=== PATIENT | male | born 1950 | race Caucasian/White ===

== ENCOUNTER 2016-11-10 15:47 | Inpatient (IN) | payer BC, OTHER ==
[~2016-11-10] VITALS: Ht 182.9 cm; Wt 128.0 kg
[2016-11-10 19:39] LABS: Basophils # (auto) 0.1 uL; Basophils % (auto) 1.1 % (0.0-2.0); Eosinophils # (auto) 0.2 uL; Eosinophils % (auto) 1.3 % (0.0-7.0); Hematocrit 37.2 % (41.0-53.0); Hemoglobin 12.8 g/dL (13.5-17.5); Lymphocytes # (auto) 2.5 uL; Lymphocytes % (auto) 18.8 % (10.0-50.0); Mean Corpuscular Hemoglobin 30.7 pg (28.0-32.0); Mean Corpuscular Hgb Conc. 34.3 g/dL (32.0-36.0); Mean Corpuscular Volume 89.5 fL (80.0-100.0); Mean Platelet Volume 8.2 fL (7.4-10.4); Monocytes # (auto) 0.8 uL; Monocytes % (auto) 6.2 % (0.0-12.0); Neutrophils # (auto) 9.6 uL; Neutrophils % (auto) 72.6 % (37.0-80.0); Platelet Count (auto) 384 10^3/uL (140-450); White Blood Cell 13.2 10^3/uL (4.4-10.8)
[2016-11-10] MEDS ORDERED: ONDANSETRON HCL 4 MG/2 ML VIAL IV ONE ×2 (20:00→23:00)
[2016-11-10] MEDS ORDERED: HYDROmorphone HCL 2 MG/ML VL IV ONE ×2 (20:00→23:00)
[2016-11-10 20:05] LABS: Albumin 3.6 g/dL (3.4-5.0); BUN/Creatinine Ratio 14.7; Bilirubin, Total 0.4 mg/dL (0.2-1.0); Potassium 3.8 mmol/L (3.5-5.1); Total Protein 7.8 g/dL (6.4-8.2)
[2016-11-10] MEDS ORDERED: cefTRIAXone 1GM/50ML D5W 50 ML IV ONE (21:30)
[2016-11-10] MEDS ORDERED: DEXTROSE (50%) 50ML SYRG IV PRN (21:30)
[2016-11-10] MEDS ORDERED: SODIUM CHLORIDE 0.9% 1,000 ML IV ONE (21:30)
[2016-11-10 21:31] LABS: Urine Bilirubin Negative (Negative); Urine Blood Negative /uL (Negative); Urine Color Yellow (Yellow); Urine Glucose Normal (Normal); Urine Nitrite Negative (Negative); Urine RBC <1 /hpf (0 - 3); Urine Urobilinogen Normal (Negative); Urine pH 6.5 (5.0-8.0)
[2016-11-10 21:37] LABS: Urine Ketone 1+ (Negative)
[2016-11-10 22:00] LABS: INR 1.1 (0.9-1.15); Partial Thromboplastin Time 28.5 sec (22.64-33.71); Prothrombin Time 11.3 sec (9.37-12.3)
[2016-11-10] MEDS ORDERED: DOXYCYCLINE HYC 100MG/250ML 250 ML IV SCH (22:00)
[2016-11-10] MEDS: ATORVASTATIN 20 MG TAB PO SCH (22:14)
[2016-11-10] MEDS: GABAPENTIN 100 MG CAP PO SCH (22:14)
[2016-11-10] MEDS: CARVEDILOL 12.5 MG TAB PO SCH (22:14)
[2016-11-10 23:04] VITALS: BP 109/42
[2016-11-11] MEDS: ACCU-CHEK COMFORT CURVE STRIP VI SCH ×4 (00:06→18:09)
[2016-11-11] MEDS ORDERED: ONDANSETRON HCL 4 MG/2 ML VIAL IV PRN (03:00)
[2016-11-11] MEDS: HYDROmorphone HCL 2 MG/ML VL IV PRN ×2 (03:45→12:23)
[2016-11-11 05:25] VITALS: BP 102/56
[2016-11-11] MEDS: GABAPENTIN 100 MG CAP PO SCH ×3 (05:29→21:57)
[2016-11-11] MEDS: InsuLIN REG 1unit/0.01ml Soln (100units/ml) SC SCH ×4 (05:42→18:00)
[2016-11-11 06:36] LABS: Basophils # (auto) 0.1 uL; Basophils % (auto) 0.7 % (0.0-2.0); Eosinophils # (auto) 0.1 uL; Eosinophils % (auto) 1.6 % (0.0-7.0); Hematocrit 33.6 % (41.0-53.0); Hemoglobin 11.4 g/dL (13.5-17.5); Lymphocytes # (auto) 1.6 uL; Lymphocytes % (auto) 18.8 % (10.0-50.0); Mean Corpuscular Hemoglobin 30.5 pg (28.0-32.0); Mean Corpuscular Volume 89.7 fL (80.0-100.0); Mean Platelet Volume 7.9 fL (7.4-10.4); Monocytes # (auto) 0.7 uL; Monocytes % (auto) 7.7 % (0.0-12.0); Neutrophils # (auto) 6.2 uL; Neutrophils % (auto) 71.2 % (37.0-80.0); Platelet Count (auto) 314 10^3/uL (140-450); Red Cell Distribution Width 12.9 % (11.6-16.0); White Blood Cell 8.7 10^3/uL (4.4-10.8)
[2016-11-11 07:08] LABS: Albumin 3.1 g/dL (3.4-5.0); Potassium 3.6 mmol/L (3.5-5.1)
[2016-11-11 07:11] LABS: BUN/Creatinine Ratio 14.4
[2016-11-11 07:13] LABS: Bilirubin, Total 0.5 mg/dL (0.2-1.0); Total Protein 6.7 g/dL (6.4-8.2)
[2016-11-11] MEDS ORDERED: LIDOCAINE W/ EPINEPHRINE 1% 20ML VIAL ONE (07:54)
[2016-11-11] MEDS ORDERED: LIDOCAINE 1% HCL (LOCAL ANESTH.) INJ 20ML MDV ONE (07:54)
[2016-11-11] MEDS ORDERED: BUPIVACAINE 0.25% INJ 50ML VIAL ONE (07:54)
[2016-11-11 08:05] VITALS: BP 109/60
[2016-11-11] MEDS ORDERED: ceFAZolin 1GM/50ML D5W 50 ML IV ONE (08:12)
[2016-11-11] MEDS ORDERED: ceFAZolin 1GM VL ONE (08:18)
[2016-11-11] MEDS ORDERED: SUCCINYLCHOLINE CHLORIDE 20 MG/ML 10ML VIAL IV ONE (08:32)
[2016-11-11] MEDS ORDERED: MIDAZOLAM HCL 1MG/1ML-2 ML VIAL ONE (08:36)
[2016-11-11] MEDS ORDERED: fentaNYL CITRATE 100 MCG/2 ML VL ONE (08:36)
[2016-11-11] MEDS ORDERED: PROPOFOL 10 MG/ML 20 ML IV ONE (08:36)
[2016-11-11] MEDS ORDERED: ROCURONIUM 10MG/ML 10ML VIAL IV ONE (08:36)
[2016-11-11] MEDS: cefTRIAXone 1GM/50ML D5W 50 ML IV SCH (09:00)
[2016-11-11] MEDS ORDERED: hydrALAZINE HCL 20 MG/ML VL IV PRN (10:00)
[2016-11-11] MEDS ORDERED: HYDROmorphone HCL 2 MG/ML VL IV PRN (10:00)
[2016-11-11] MEDS ORDERED: ePHEDrine SULFATE 50 MG/ML AMP IV PRN (10:00)
[2016-11-11] MEDS ORDERED: FUROSEMIDE 20 MG TAB PO SCH (10:00)
[2016-11-11] MEDS ORDERED: ONDANSETRON HCL 4 MG/2 ML VIAL IV ONE (10:00)
[2016-11-11] MEDS ORDERED: PANTOPRAZOLE SODIUM 40 MG/10 ML VIAL IV SCH (10:00)
[2016-11-11] MEDS ORDERED: POTASSIUM CHLORIDE 8 MEQ TAB PO SCH (10:00)
[2016-11-11] MEDS ORDERED: LOSARTAN POTASSIUM 50 MG TAB PO SCH (10:00)
[2016-11-11 12:00] VITALS: BP 110/60
[2016-11-11] MEDS ORDERED: ACETAMINOPHEN 325 MG TAB PO PRN (12:00)
[2016-11-11] MEDS: CARVEDILOL 12.5 MG TAB PO SCH ×2 (12:21→21:57)
[2016-11-11 17:28] VITALS: BP 100/41
[2016-11-11 20:00] VITALS: BP 97/45
[2016-11-11 21:41] VITALS: BP 97/45
[2016-11-11] MEDS: ATORVASTATIN 20 MG TAB PO SCH (21:56)
[2016-11-12] MEDS: ACCU-CHEK COMFORT CURVE STRIP VI SCH ×2 (01:01→05:33)
[2016-11-12] MEDS: InsuLIN REG 1unit/0.01ml Soln (100units/ml) SC SCH ×2 (01:02→05:43)
[2016-11-12 04:42] VITALS: BP 99/54
[2016-11-12] MEDS: GABAPENTIN 100 MG CAP PO SCH (05:33)
[2016-11-12 06:56] LABS: Basophils # (auto) 0 uL; Basophils % (auto) 0.2 % (0.0-2.0); Eosinophils # (auto) 0.3 uL; Eosinophils % (auto) 3.9 % (0.0-7.0); Hematocrit 33.6 % (41.0-53.0); Hemoglobin 11.3 g/dL (13.5-17.5); Lymphocytes # (auto) 1.7 uL; Lymphocytes % (auto) 22.7 % (10.0-50.0); Mean Corpuscular Hemoglobin 30.3 pg (28.0-32.0); Mean Corpuscular Hgb Conc. 33.7 g/dL (32.0-36.0); Mean Corpuscular Volume 89.8 fL (80.0-100.0); Mean Platelet Volume 7.9 fL (7.4-10.4); Monocytes # (auto) 0.5 uL; Monocytes % (auto) 6.6 % (0.0-12.0); Neutrophils # (auto) 4.9 uL; Neutrophils % (auto) 66.6 % (37.0-80.0); Platelet Count (auto) 329 10^3/uL (140-450); Red Cell Distribution Width 12.9 % (11.6-16.0); White Blood Cell 7.4 10^3/uL (4.4-10.8)
[2016-11-12 07:08] LABS: Potassium 3.5 mmol/L (3.5-5.1)
[2016-11-12 07:21] LABS: BUN/Creatinine Ratio 12.8; Calcium 8.1 mg/dL (8.5-10.1)
[2016-11-12] MEDS ORDERED: FEBU40TA PO (08:03)
[2016-11-12] MEDS ORDERED: ATOR40TA52 PO (08:03)
[2016-11-12] MEDS ORDERED: METF-314 PO (08:03)
[2016-11-12] MEDS ORDERED: CETI1TAB36 PO (08:03)
[2016-11-12] MEDS ORDERED: INDO50CA82 PO (08:03)
[2016-11-12] MEDS ORDERED: CARV40CA PO (08:03)
[2016-11-12] MEDS ORDERED: LOSA100T27 PO (08:03)
[2016-11-12] MEDS ORDERED: SITA100T7 PO (08:03)
[2016-11-12 08:10] VITALS: BP 104/58
[2016-11-12] MEDS: cefTRIAXone 1GM/50ML D5W 50 ML IV SCH (08:36)
[2016-11-12 09:17] VITALS: BP 104/58
[2016-11-12] MEDS ORDERED: CEFD300C2 PO (09:31)
[2016-11-12 11:18] VITALS: BP 104/58
== END 2016-11-12 13:37 | disposition home or self-care (01) | DRG 712 ==
LOC: ER 15:51 → TELE 15:52 → TELE-CENTR 23:04
PROVIDERS: ADMIT Family Medicine; ATTEND Internal Medicine
PROC: 0VBB0ZZ Excision of Left Testis, Open Approach (ICD-10-PCS; principal; 2016-11-11 08:41)
PROC: 0VJ80ZZ Inspection of Scrotum and Tunica Vaginalis, Open Approach (ICD-10-PCS; 2016-11-11 08:41)
DX: N44.00 Torsion of testis, unspecified (principal); E11.9 Type 2 diabetes mellitus without complications; E66.01 Morbid (severe) obesity due to excess calories; E78.5 Hyperlipidemia, unspecified; I50.9 Heart failure, unspecified; N50.1 Vascular disorders of male genital organs; I11.0 Hypertensive heart disease with heart failure; Z88.1 Allergy status to other antibiotic agents; Z68.38 Body mass index [BMI] 38.0-38.9, adult; Z88.8 Allergy status to other drugs, medicaments and biological substances
CPT/HCPCS: 36415; 71010; 76870; 80048; 80053; 81001; 82962; 83036; 85025; 85610; 85730; 86850; 86900; 86901; 87081; 93005; 96365; 96375; C9113; J0330; J0690; J0696; J1815; J2001; J2250; J2405; J2704; J3490

== ENCOUNTER 2019-02-07 18:34 | Emergency (ER) | payer OTHER ==
[~2019-02-07] VITALS: Ht 182.9 cm; Wt 111.1 kg
[~2019-02-07 18:34] MED LIST: ATOR40TA52 PO; CARV40CA PO; CEFD300C2 PO; CETI1TAB36 PO; FEBU40TA PO; INDO50CA82 PO; LOSA-49 PO; METF-371 PO; SITA100T7 PO
[2019-02-07 19:52] VITALS: BP 106/64
[2019-02-07] MEDS: COLCHICINE 0.6 MG CAP PO ONE (20:09)
[2019-02-07] MEDS: DexAMETHasone SOD PHOS 10MG/1ML VIAL INJ IM ONE (20:09)
== END 2019-02-07 22:05 | disposition home or self-care (01) ==
LOC: ER 18:35
DX: M10.9 Gout, unspecified (principal); I10 Essential (primary) hypertension; E78.5 Hyperlipidemia, unspecified; E11.9 Type 2 diabetes mellitus without complications; Z88.1 Allergy status to other antibiotic agents
CPT/HCPCS: 36415; 82962; 84550; 96372; 99283; J1100

== ENCOUNTER 2021-03-07 17:22 | Inpatient (IN) | payer MEDICARE, BC ==
[~2021-03-07] VITALS: Ht 175.3 cm; Wt 118.0 kg
[2021-03-07] VITALS (18 sets, daily range): BP systolic 96–121; BP diastolic 47–88
[~2021-03-07 17:22] MED LIST changes: +LOSA-39 PO; -LOSA-49 PO
[2021-03-07] MEDS ORDERED: EPINEPHrine HCL 250 ML IV ONE (17:42)
[2021-03-07] MEDS ORDERED: SODIUM BICARBONATE 8.4 % INJ 50ML VIAL IV ONE (17:43)
[2021-03-07] MEDS ORDERED: IODIXANOL 320MG/ML 100ML BTL IV ONE ×2 (17:45→18:19)
[2021-03-07] MEDS ORDERED: LIDOCAINE 2%HCL (LOCAL ANESTH.) INJ 20ML MDV ONE (17:45)
[2021-03-07] MEDS ORDERED: SODIUM BICARBONATE 8.4% INJ 50ML SYRINGE ONE ×2 (17:53→19:09)
[2021-03-07] MEDS ORDERED: PHENYLEPHRINE IV 250 ML IV ONE ×2 (18:06→23:03)
[2021-03-07] MEDS ORDERED: PHENYLEPHRINE HCL 10 MG/ML VL ONE (18:06)
[2021-03-07] MEDS ORDERED: ANGIOMAX 250 MG VIAL IV ONE (18:09)
[2021-03-07] MEDS ORDERED: SODIUM CHL 0.9% 50 ML ONE (18:09)
[2021-03-07] MEDS ORDERED: MORPHINE SULFATE INJECTION 2 MG/ML SYRG IV PRN (18:45)
[2021-03-07] MEDS ORDERED: NITROGLYCERIN 0.4 MG SL TAB SL PRN (18:45)
[2021-03-07] MEDS ORDERED: DIGOXIN (250MCG/ML) 2 ML AMPULE ONE (18:53)
[2021-03-07] MEDS: SODIUM CHLORIDE 0.9% 1,000 ML IV SCH (20:00)
[2021-03-07] MEDS ORDERED: DOPamine 1600MCG/ML D5W 250 ML IV ONE (20:42)
[2021-03-07] MEDS ORDERED: DEXTROSE (50%) 50ML SYRG IV PRN (20:45)
[2021-03-07] MEDS: MIDAZOLAM DRIP 50 mg/50mL 50 ML IV SCH (21:00)
[2021-03-07] MEDS ORDERED: NOREPINEPHRINE 8 MG/250ML KIT 250 ML IV ONE (22:17)
[2021-03-07 22:46] LABS: Hematocrit 45.7 % (41.0-53.0); Hemoglobin 15.4 g/dL (13.5-17.5); Mean Corpuscular Hemoglobin 30.1 pg (28.0-32.0); Mean Corpuscular Hgb Conc. 33.7 g/dL (32.0-36.0); Mean Corpuscular Volume 89.5 fL (80.0-100.0); Red Blood Cells 5.11 10^6/uL (4.5-5.90); White Blood Cell 27.1 10^3/uL (4.4-10.8)
[2021-03-07 22:48] LABS: Basophils % (manual) 0 (0.0-2.0); Blast Cells 0; Eosinophils % (manual) 0 (0-7); Metamyelocytes % 0; Promyelocytes % 0; Reactive Lymphocytes 0
[2021-03-07 22:52] LABS: INR 1.43 (0.9-1.15); Partial Thromboplastin Time 43.1 sec (23.0-31.2)
[2021-03-07 23:00] LABS: Band Neutrophils % (manual) 45; Lymphocytes % (manual) 2 (10.0-50.0); Monocytes % (manual) 7 (0-12); Myelocytes % 1
[2021-03-08] VITALS (101 sets, daily range): BP systolic 52–189; BP diastolic 29–138
[2021-03-08] MEDS ORDERED: ACCU-CHEK COMFORT CURVE STRIP VI SCH
[2021-03-08] MEDS ORDERED: InsuLIN REG 1unit/0.01ml Soln (100units/ml) SC SCH
[2021-03-08 01:00] LABS: Hemoglobin 16.5 g/dL (13.5-17.5)
[2021-03-08 01:02] LABS: Hematocrit 49.5 % (41.0-53.0); Mean Corpuscular Hemoglobin 29.8 pg (28.0-32.0); Mean Corpuscular Hgb Conc. 33.4 g/dL (32.0-36.0); Mean Corpuscular Volume 89.3 fL (80.0-100.0); Red Blood Cells 5.55 10^6/uL (4.5-5.90); Red Cell Distribution Width 13.3 % (11.8-14.3)
[2021-03-08 01:06] LABS: Albumin 3.4 g/dL (3.4-5.0); Potassium 4.5 mmol/L (3.5-5.1)
[2021-03-08 01:09] LABS: BUN/Creatinine Ratio 9.8; Basophils % (manual) 0 (0.0-2.0); Bilirubin, Total 0.5 mg/dL (0.2-1.0); Blast Cells 0; Eosinophils % (manual) 0 (0-7); Metamyelocytes % 0; Myelocytes % 0; Promyelocytes % 0; Reactive Lymphocytes 0; Total Protein 6.6 g/dL (6.4-8.2); White Blood Cell 33.2 10^3/uL (4.4-10.8)
[2021-03-08 01:11] LABS: INR 1.34 (0.9-1.15); Partial Thromboplastin Time 34.2 sec (23.0-31.2)
[2021-03-08 01:58] LABS: Band Neutrophils % (manual) 28; Lymphocytes % (manual) 6 (10.0-50.0)
[2021-03-08 01:59] LABS: Monocytes % (manual) 3 (0-12)
[2021-03-08] MEDS ORDERED: NOREPINEPHRINE 8 MG/250ML KIT 250 ML IV ONE ×5 (02:02→15:45)
[2021-03-08] MEDS ORDERED: DEXTROSE (50%) 50ML SYRG IV PRN (02:15)
[2021-03-08] MEDS ORDERED: VANCOMYCIN PER PHARMACY 0 MG IV SCH (02:15)
[2021-03-08] MEDS ORDERED: PHENYLEPHRINE IV 250 ML IV ONE (02:50)
[2021-03-08] MEDS ORDERED: VANCOMYCIN 1GM/250ML 250 ML IV ONE (03:00)
[2021-03-08] MEDS: ACCU-CHEK COMFORT CURVE STRIP VI SCH ×5 (04:20→20:43)
[2021-03-08] MEDS: InsuLIN REG 1unit/0.01ml Soln (100units/ml) SC SCH ×5 (04:47→20:45)
[2021-03-08] MEDS ORDERED: DOPamine 1600MCG/ML D5W 250 ML IV ONE (05:53)
[2021-03-08] MEDS ORDERED: PIPERACILLIN-TAZOB 2.25GM 50 ML IV SCH (06:00)
[2021-03-08] MEDS ORDERED: VANCOMYCIN 500 MG in D5W 5% 100 ML IV ONE (11:00)
[2021-03-08] MEDS: PHENYLEPHRINE INJ 40 MG in SODIUM CHL 0.9% 246 ML IV SCH ×2 (11:03→18:49)
[2021-03-08] MEDS ORDERED: EPINEPHrine HCL 1 MG/10 ML SYRG IV ONE (11:10)
[2021-03-08] MEDS ORDERED: CALCIUM CHLOR(10%) 100MG/ML 10ML SYRINGE IV ONE (11:10)
[2021-03-08] MEDS ORDERED: DOPamine 1600mCg/ml 400MG/250ml NSorD5 KIT/BAG IV ONE ×2 (11:10→14:02)
[2021-03-08] MEDS ORDERED: SODIUM BICARBONATE 8.4% INJ 50ML SYRINGE IV ONE (11:10)
[2021-03-08] MEDS ORDERED: PPN PER PHARMACY 0 ML IV SCH (11:30)
[2021-03-08] MEDS ORDERED: PANTOPRAZOLE 40 MG/10 ML VIAL INJ IV ONE (11:30)
[2021-03-08] MEDS ORDERED: ENOXAPARIN SOD 40 MG/0.4 ML SYRINGE SC ONE (11:30)
[2021-03-08] MEDS: PIPERACILLIN-TAZOB 3.375GM 100 ML IV SCH ×2 (11:46→17:58)
[2021-03-08] MEDS: SODIUM CHLORIDE 0.9% 1,000 ML IV SCH ×2 (11:47→15:00)
[2021-03-08 13:02] LABS: Hematocrit 43.8 % (41.0-53.0); Hemoglobin 14.5 g/dL (13.5-17.5); Mean Corpuscular Hemoglobin 29.1 pg (28.0-32.0); Mean Corpuscular Hgb Conc. 33.1 g/dL (32.0-36.0); Mean Corpuscular Volume 88.2 fL (80.0-100.0); Red Blood Cells 4.97 10^6/uL (4.5-5.90); Red Cell Distribution Width 13.1 % (11.8-14.3); White Blood Cell 27.7 10^3/uL (4.4-10.8)
[2021-03-08 13:15] LABS: Basophils % (manual) 0 (0.0-2.0); Blast Cells 0; Eosinophils % (manual) 0 (0-7); Metamyelocytes % 0; Myelocytes % 0; Promyelocytes % 0; Reactive Lymphocytes 0
[2021-03-08 13:17] LABS: Albumin 2.8 g/dL (3.4-5.0); Calcium 7.7 mg/dL (8.5-10.1); Magnesium 1.5 mg/dL (1.6-2.6); Phosphorus 3.1 mg/dL (2.5-4.90); Potassium 5.2 mmol/L (3.5-5.1)
[2021-03-08 13:19] LABS: INR 1.15 (0.9-1.15); Partial Thromboplastin Time 27.6 sec (23.0-31.2)
[2021-03-08 13:20] LABS: Lactic Acid w/Reflex 4.9 mmol/L (0.4-2.0)
[2021-03-08 13:22] LABS: Pre Albumin 14.7 mg/dL (20.0-40.0)
[2021-03-08 13:26] LABS: Bilirubin, Total 0.4 mg/dL (0.2-1.0); Total Protein 5.7 g/dL (6.4-8.2)
[2021-03-08 13:49] LABS: Band Neutrophils % (manual) 25; Lymphocytes % (manual) 5 (10.0-50.0); Monocytes % (manual) 4 (0-12)
[2021-03-08] MEDS ORDERED: ACETAMINOPHEN 650 mg PER 20.3 mL UD GT PRN (14:30)
[2021-03-08] MEDS ORDERED: MAGNESIUM SULFATE 1GM/100ML 100 ML IV ONE (14:30)
[2021-03-08] MEDS: DOPamine 1600MCG/ML D5W 250 ML IV SCH (17:22)
[2021-03-08] MEDS: NOREPINEPHRINE 8 MG/250ML KIT 250 ML IV SCH (17:23)
[2021-03-08] MEDS ORDERED: SODIUM CHLORIDE 0.9% 1,000 ML IV ONE (19:15)
[2021-03-08] MEDS ORDERED: VASOPRESSIN 20 UNIT/ML ONE (19:19)
[2021-03-08] MEDS: VASOPRESSIN 50 UNITS in D5W 5% 247.5 ML IV SCH (19:30)
[2021-03-08] MEDS: INSULIN LANTUS (GLARGINE) 1 /0.01ml (100units/ml) SC SCH (22:10)
[2021-03-09] VITALS (94 sets, daily range): BP systolic 83–153; BP diastolic 47–173
[2021-03-09] MEDS: PIPERACILLIN-TAZOB 3.375GM 100 ML IV SCH ×4 (06:00→18:24)
[2021-03-09] MEDS: ACCU-CHEK COMFORT CURVE STRIP VI SCH ×6 (06:30→20:00)
[2021-03-09 06:53] LABS: Basophils # (auto) 0.1 10 ^3/uL (0-0.2); Basophils % (auto) 0.5 % (0.0-2.0); Eosinophils # (auto) 0.2 10 ^3/uL (0-0.8); Eosinophils % (auto) 1.2 % (0.0-7.0); Hematocrit 39.3 % (41.0-53.0); Hemoglobin 13.2 g/dL (13.5-17.5); Lymphocytes # (auto) 2.8 10 ^3/uL (0.4-5.4); Lymphocytes % (auto) 15.3 % (10.0-50.0); Mean Corpuscular Hemoglobin 29.8 pg (28.0-32.0); Mean Corpuscular Hgb Conc. 33.7 g/dL (32.0-36.0); Mean Corpuscular Volume 88.4 fL (80.0-100.0); Monocytes # (auto) 1.6 10 ^3/uL (0-1.3); Monocytes % (auto) 8.9 % (0.0-12.0); Neutrophils # (auto) 13.4 10 ^3/uL (1.6-8.6); Neutrophils % (auto) 74.1 % (37.0-80.0); Nucleated Red Blood Cells % 0.1 %; Red Blood Cells 4.44 10^6/uL (4.5-5.90); Red Cell Distribution Width 12.9 % (11.8-14.3); White Blood Cell 18.2 10^3/uL (4.4-10.8)
[2021-03-09] MEDS: InsuLIN REG 1unit/0.01ml Soln (100units/ml) SC SCH ×6 (06:57→21:11)
[2021-03-09 07:12] LABS: Potassium 4.4 mmol/L (3.5-5.1)
[2021-03-09 07:24] LABS: Albumin 2.3 g/dL (3.4-5.0); Bilirubin, Total 0.4 mg/dL (0.2-1.0); Calcium 6.9 mg/dL (8.5-10.1); Magnesium 1.5 mg/dL (1.6-2.6); Total Protein 5.1 g/dL (6.4-8.2)
[2021-03-09] MEDS: DOPamine 1600MCG/ML D5W 250 ML IV SCH ×2 (08:24→10:00)
[2021-03-09] MEDS: MIDAZOLAM DRIP 50 mg/50mL 50 ML IV SCH ×2 (08:24→20:45)
[2021-03-09] MEDS: SODIUM CHLORIDE 0.9% 1,000 ML IV SCH ×2 (08:24→11:25)
[2021-03-09] MEDS ORDERED: VANCOMYCIN 1GM/250ML 250 ML IV ONE (10:00)
[2021-03-09] MEDS: NOREPINEPHRINE 8 MG/250ML KIT 250 ML IV SCH ×2 (10:10→15:39)
[2021-03-09] MEDS: ENOXAPARIN SOD 40 MG/0.4 ML SYRINGE SC SCH (10:11)
[2021-03-09] MEDS: PANTOPRAZOLE 40 MG/10 ML VIAL INJ IV SCH (10:11)
[2021-03-09] MEDS: PHENYLEPHRINE INJ 40 MG in SODIUM CHL 0.9% 246 ML IV SCH ×2 (10:20→14:20)
[2021-03-09] MEDS: INSULIN LANTUS (GLARGINE) 1 /0.01ml (100units/ml) SC SCH ×2 (10:47→22:22)
[2021-03-09] MEDS: MAGNESIUM SULFATE 1GM/100ML 100 ML IV SCH ×2 (11:30→12:44)
[2021-03-09] MEDS ORDERED: CALCIUM GLUC 1,000mg/50ml-NS 50 ML IV ONE (13:00)
[2021-03-09 13:02] LABS: Urine Amorphous Crystal FEW /hpf (None Seen); Urine Bacteria NONE SEEN /hpf (None Seen); Urine Blood 1+ /uL (Negative); Urine Specific Gravity 1.017 (1.001-1.035); Urine WBC 4 /hpf (0 - 3)
[2021-03-09 13:04] LABS: Alcohol, Urine < 3.0 mg/dL (0-10); Amphetamine Screen, Urine NEGATIVE (NEGATIVE); Barbiturate Scree,Urine NEGATIVE (NEGATIVE); Benzodiazephine Screen, Urine POSITIVE (NEGATIVE); Cannabinoid Screen, Urine NEGATIVE (NEGATIVE); Cocaine Screen, Urine NEGATIVE (NEGATIVE); Opiate Scree,Urine NEGATIVE (NEGATIVE); Phencyclidine Screen, Urine NEGATIVE (NEGATIVE)
[2021-03-09] MEDS ORDERED: TPN PER PHARMACY 0 ML IV SCH (13:15)
[2021-03-09] MEDS ORDERED: ACETAMINOPHEN 650 mg PER 20.3 mL UD GT PRN (13:30)
[2021-03-09] MEDS: PHENYLEPHRINE INJ 80 MG in SODIUM CHL 0.9% 242 ML IV SCH (18:24)
[2021-03-09] MEDS: VASOPRESSIN 50 UNITS in D5W 5% 247.5 ML IV SCH (19:18)
[2021-03-09] MEDS ORDERED: TPN PER PHARMACY IV NR ×9 (20:00)
[2021-03-10] VITALS (66 sets, daily range): BP systolic 97–238; BP diastolic 48–117
[2021-03-10] MEDS: InsuLIN REG 1unit/0.01ml Soln (100units/ml) SC SCH ×4 (04:00→17:54)
[2021-03-10] MEDS: ACCU-CHEK COMFORT CURVE STRIP VI SCH ×5 (05:14→17:23)
[2021-03-10 05:29] LABS: Hemoglobin 12.3 g/dL (13.5-17.5); Mean Corpuscular Hemoglobin 30.2 pg (28.0-32.0); Mean Corpuscular Hgb Conc. 34.3 g/dL (32.0-36.0); Mean Corpuscular Volume 87.9 fL (80.0-100.0); Red Blood Cells 4.09 10^6/uL (4.5-5.90); Red Cell Distribution Width 13.1 % (11.8-14.3); White Blood Cell 17.9 10^3/uL (4.4-10.8)
[2021-03-10 05:42] LABS: Calcium 7.2 mg/dL (8.5-10.1); Potassium 4.5 mmol/L (3.5-5.1)
[2021-03-10 05:47] LABS: BUN/Creatinine Ratio 14.5; Bilirubin, Total 0.7 mg/dL (0.2-1.0); Total Protein 4.9 g/dL (6.4-8.2)
[2021-03-10 05:49] LABS: Magnesium 1.7 mg/dL (1.6-2.6); Phosphorus 2.1 mg/dL (2.5-4.90)
[2021-03-10] MEDS: PIPERACILLIN-TAZOB 3.375GM 100 ML IV SCH ×4 (06:00→17:23)
[2021-03-10 06:25] LABS: Basophils % (manual) 0 (0.0-2.0); Blast Cells 0; Metamyelocytes % 0; Myelocytes % 0; Promyelocytes % 0; Reactive Lymphocytes 0
[2021-03-10 06:26] LABS: Band Neutrophils % (manual) 12; Eosinophils % (manual) 1 (0-7); Lymphocytes % (manual) 12 (10.0-50.0); Monocytes % (manual) 5 (0-12)
[2021-03-10] MEDS: SODIUM CHLORIDE 0.9% 1,000 ML IV SCH ×2 (07:00→09:21)
[2021-03-10] MEDS: VASOPRESSIN 50 UNITS in D5W 5% 247.5 ML IV SCH (07:43)
[2021-03-10] MEDS: PHENYLEPHRINE INJ 80 MG in SODIUM CHL 0.9% 242 ML IV SCH ×2 (07:45→13:48)
[2021-03-10] MEDS: NOREPINEPHRINE 8 MG/250ML KIT 250 ML IV SCH ×3 (07:48→17:33)
[2021-03-10] MEDS: DOPamine 1600MCG/ML D5W 250 ML IV SCH ×2 (09:22→11:12)
[2021-03-10] MEDS: VANCOMYCIN 1GM/250ML 250 ML IV SCH (09:26)
[2021-03-10] MEDS: PANTOPRAZOLE 40 MG/10 ML VIAL INJ IV SCH (09:27)
[2021-03-10] MEDS: ENOXAPARIN SOD 40 MG/0.4 ML SYRINGE SC SCH (09:27)
[2021-03-10] MEDS: INSULIN LANTUS (GLARGINE) 1 /0.01ml (100units/ml) SC SCH ×2 (10:58→22:00)
[2021-03-10] MEDS: MAGNESIUM SULFATE 1GM/100ML 100 ML IV SCH ×2 (11:46→13:45)
[2021-03-10] MEDS ORDERED: SODIUM PHOSP 20MEQ(15MMOL) IN NS 100 ML IV ONE (12:00)
[2021-03-10] MEDS ORDERED: FUROSEMIDE 40 MG/4 ML VIAL IV ONE (12:15)
[2021-03-10] MEDS ORDERED: ALBUMIN 25% 100 ML IV ONE (12:15)
[2021-03-10] MEDS ORDERED: ENOXAPARIN SOD 80 MG/0.8ML SYRINGE SC ONE (12:30)
[2021-03-10] MEDS ORDERED: DEXTROSE (50%) 50ML SYRG IV PRN (12:30)
[2021-03-10] MEDS ORDERED: INSULIN LANTUS (GLARGINE) 1 /0.01ml (100units/ml) SC ONE (14:00)
[2021-03-10] MEDS ORDERED: TPN PER PHARMACY IV NR ×10 (20:00)
[2021-03-10] MEDS: MIDAZOLAM DRIP 50 mg/50mL 50 ML IV SCH (20:45)
[2021-03-10] MEDS: ENOXAPARIN SOD 120 MG/0.8 ML SYRINGE SC SCH (22:00)
[2021-03-11] VITALS (70 sets, daily range): BP systolic 45–187; BP diastolic 33–110
[2021-03-11] MEDS: InsuLIN REG 1unit/0.01ml Soln (100units/ml) SC SCH ×3 (00:30→11:45)
[2021-03-11] MEDS ORDERED: VASOPRESSIN 20 UNIT/ML ONE (04:00)
[2021-03-11 04:35] LABS: Basophils # (auto) 0 10 ^3/uL (0-0.2); Basophils % (auto) 0.3 % (0.0-2.0); Eosinophils # (auto) 0.4 10 ^3/uL (0-0.8); Eosinophils % (auto) 3.4 % (0.0-7.0); Hemoglobin 10.4 g/dL (13.5-17.5); Lymphocytes # (auto) 1.5 10 ^3/uL (0.4-5.4); Lymphocytes % (auto) 11.9 % (10.0-50.0); Mean Corpuscular Hemoglobin 30.2 pg (28.0-32.0); Mean Corpuscular Hgb Conc. 34.6 g/dL (32.0-36.0); Mean Corpuscular Volume 87.4 fL (80.0-100.0); Monocytes # (auto) 0.9 10 ^3/uL (0-1.3); Monocytes % (auto) 6.9 % (0.0-12.0); Neutrophils # (auto) 9.9 10 ^3/uL (1.6-8.6); Neutrophils % (auto) 77.5 % (37.0-80.0); Red Blood Cells 3.43 10^6/uL (4.5-5.90); Red Cell Distribution Width 13.2 % (11.8-14.3); White Blood Cell 12.7 10^3/uL (4.4-10.8)
[2021-03-11 04:56] LABS: Potassium 3.2 mmol/L (3.5-5.1)
[2021-03-11 05:02] LABS: Albumin 1.9 g/dL (3.4-5.0); BUN/Creatinine Ratio 14.2; Bilirubin, Total 0.8 mg/dL (0.2-1.0); Calcium 7.7 mg/dL (8.5-10.1); Magnesium 2.2 mg/dL (1.6-2.6); Phosphorus 1.2 mg/dL (2.5-4.90)
[2021-03-11] MEDS: ACCU-CHEK COMFORT CURVE STRIP VI SCH ×3 (06:27→11:46)
[2021-03-11] MEDS: PIPERACILLIN-TAZOB 3.375GM 100 ML IV SCH ×2 (06:27)
[2021-03-11] MEDS: DOPamine 1600MCG/ML D5W 250 ML IV SCH (08:26)
[2021-03-11] MEDS: NOREPINEPHRINE 8 MG/250ML KIT 250 ML IV SCH ×2 (08:27→11:48)
[2021-03-11] MEDS ORDERED: POTASSIUM PHOSPHATE 44 MEQ in D5W 5% 250 ML IV ONE ×2 (10:00→11:00)
[2021-03-11] MEDS: ENOXAPARIN SOD 120 MG/0.8 ML SYRINGE SC SCH (10:15)
[2021-03-11] MEDS: VANCOMYCIN 1GM/250ML 250 ML IV SCH (10:15)
[2021-03-11] MEDS: PANTOPRAZOLE 40 MG/10 ML VIAL INJ IV SCH (10:15)
[2021-03-11] MEDS: INSULIN LANTUS (GLARGINE) 1 /0.01ml (100units/ml) SC SCH (10:29)
[2021-03-11] MEDS: PHENYLEPHRINE INJ 80 MG in SODIUM CHL 0.9% 242 ML IV SCH (11:49)
[2021-03-11] MEDS ORDERED: LORazepam 2MG/ML-1ML VIAL IV PRN (16:00)
[2021-03-11] MEDS ORDERED: MORPHINE SULFATE INJECTION 2 MG/ML SYRG IV PRN ×2 (16:00→17:30)
[2021-03-11] MEDS ORDERED: TPN PER PHARMACY IV NR ×10 (20:00)
[2021-03-11] MEDS ORDERED: INSULIN LANTUS (GLARGINE) 1 /0.01ml (100units/ml) SC SCH (22:00)
[2021-03-12] MEDS ORDERED: levoFLOXacin 750MG 150 ML IV SCH (10:00)
== END 2021-03-11 23:40 | DRG 870 ==
LOC: EDBD 17:22 → EDSEX 17:22 → ER 17:22 → OVERFLOW 18:50 → ICU WEST 20:04
PROVIDERS: ADMIT Nurse Practitioner Acute Care; ATTEND Internal Medicine
PROC: 4A023N7 Measurement of Cardiac Sampling and Pressure, Left Heart, Percutaneous Approach (ICD-10-PCS; principal; 2021-03-07)
PROC: B2111ZZ Fluoroscopy of Multiple Coronary Arteries using Low Osmolar Contrast (ICD-10-PCS; 2021-03-07)
PROC: B2151ZZ Fluoroscopy of Left Heart using Low Osmolar Contrast (ICD-10-PCS; 2021-03-07)
PROC: 5A1955Z Respiratory Ventilation, Greater than 96 Consecutive Hours (ICD-10-PCS; 2021-03-07)
PROC: B544ZZA Ultrasonography of Left Jugular Veins, Guidance (ICD-10-PCS; 2021-03-08)
PROC: 4A133B3 Monitoring of Arterial Pressure, Pulmonary, Percutaneous Approach (ICD-10-PCS; 2021-03-08)
PROC: 04HY32Z Insertion of Monitoring Device into Lower Artery, Percutaneous Approach (ICD-10-PCS; 2021-03-08)
PROC: 02HV33Z Insertion of Infusion Device into Superior Vena Cava, Percutaneous Approach (ICD-10-PCS; 2021-03-08)
DX: A41.9 Sepsis, unspecified organism (principal); N17.0 Acute kidney failure with tubular necrosis; G93.6 Cerebral edema; K72.00 Acute and subacute hepatic failure without coma; R65.21 Severe sepsis with septic shock; J96.01 Acute respiratory failure with hypoxia; I50.31 Acute diastolic (congestive) heart failure; I21.3 ST elevation (STEMI) myocardial infarction of unspecified site; G93.1 Anoxic brain damage, not elsewhere classified; J98.11 Atelectasis; K56.7 Ileus, unspecified; E87.4 Mixed disorder of acid-base balance; I31.3 Pericardial effusion (noninflammatory); Z99.11 Dependence on respirator [ventilator] status; R94.01 Abnormal electroencephalogram [EEG]; Z20.822 Contact with and (suspected) exposure to COVID-19; I46.9 Cardiac arrest, cause unspecified; E11.9 Type 2 diabetes mellitus without complications; I11.0 Hypertensive heart disease with heart failure; E78.5 Hyperlipidemia, unspecified; J44.9 Chronic obstructive pulmonary disease, unspecified; E66.01 Morbid (severe) obesity due to excess calories; E78.1 Pure hyperglyceridemia; E83.42 Hypomagnesemia; E88.09 Other disorders of plasma-protein metabolism, not elsewhere classified; G93.89 Other specified disorders of brain; I25.10 Atherosclerotic heart disease of native coronary artery without angina pectoris; Z66 Do not resuscitate; Z79.84 Long term (current) use of oral hypoglycemic drugs; Z79.899 Other long term (current) drug therapy; Z82.49 Family history of ischemic heart disease and other diseases of the circulatory system; Z82.5 Family history of asthma and other chronic lower respiratory diseases; Z83.3 Family history of diabetes mellitus; Z86.16 Personal history of COVID-19; Z68.38 Body mass index [BMI] 38.0-38.9, adult
CPT/HCPCS: 36415; 36600; 70450; 71045; 80053; 80202; 80307; 81001; 82040; 82805; 82962; 83036; 83605; 83735; 83880; 84100; 84478; 85007; 85025; 85027; 85049; 85379; 85610; 85730; 87040; 87081; 87086; 87426; 93005; 93306; 93458; 93970; 94002; 94003; 95819; 96365; 96367; 96372; 99152; 99153; 99291; C1751; C9113; G0378; J0171; J1815; J2250; J2543; J7060; P9047; Q9967